=== PATIENT | female | born 1970 | race Caucasian/White ===

== ENCOUNTER → 2018-10-09 | Outpatient (CLI) | payer BC, OTHER ==
--- NOTE | 2018-10-09 13:29 | CT ---
EXAMINATION TYPE: CT sinus wo con DATE OF EXAM: 10/09/2018 COMPARISON: None HISTORY: Chronic sinusitis. Sinus problems on left side. CT DLP: 618.1 mGycm CONTRAST: None The paranasal sinuses are examined in the axial plane at 2 mm thick sections. Reconstructed images i n the coronal plane were obtained. There is dental amalgam scatter artifact There is a retention cyst within the posterior left maxillary sinus. The ethmoid air cells are clear . The sphenoid sinuses are clear. The frontal sinuses are clear. The septum is evaluated. There is septal deviation to the left. The ostiomeatal units are patent. IMPRESSIONS: 1. Small retention cyst within the left maxillary sinus. Paranasal sinuses are otherwise unremarkabl e. 2. Left septal deviation
== END ==
LOC: RADCTMAIN 08:24
PROVIDERS: ATTEND Otolaryngology
DX: J34.1 Cyst and mucocele of nose and nasal sinus (principal); J34.2 Deviated nasal septum
CPT/HCPCS: 70486

== ENCOUNTER → 2020-09-23 | Outpatient (CLI) | payer BC, OTHER | END | disposition home or self-care (01) | LOC: LABWHC1 13:02 | PROVIDERS: ATTEND Family Medicine | DX: Z20.828 Contact with and (suspected) exposure to other viral communicable diseases (principal) | CPT/HCPCS: U0003; C9803 ==

== ENCOUNTER 2021-11-29 11:54 | Emergency (ER) | payer BC ==
[2021-11-29 12:21] VITALS: RESP 18
[2021-11-29] MEDS ORDERED: HYDROmorphone 0.5 MG/0.5 ML SYRINGE IVP STA (13:15)
[2021-11-29] MEDS ORDERED: SODIUM CHLORIDE 0.9% 1,000 ML IV STA (13:15)
--- NOTE | 2021-11-29 13:17 | ED ---
General Adult HPI - General Chief complaint: Abdominal Pain Stated complaint: abnormal bowel habits Time Seen by Provider: 11/29/21 12:28 Source: patient, RN notes reviewed Mode of arrival: ambulatory Limitations: no limitations - History of Present Illness Initial comments: 50-year-old female with a past medical history of thyroid disorder presents to the emergency room for a chief complaint of diarrhea. Patient states yesterday she started to have diarrhea. States she had several episodes. This was then followed by small amounts of bloody stool when she fell acute diarrhea. She admits to a lower abdominal pressure. She denies fevers or chills. Denies lightheadedness. No recent travel. No Patient has no other complaints at this time including shortness of breath, chest pain, nausea or vomiting, headache, or visual changes. - Related Data Home Medications Medication Instructions Recorded Confirmed Cholecalciferol [Vitamin D3] 2,000 unit PO DAILY 09/26/16 09/28/16 Citalopram Hydrobromide [CeleXA] 20 mg PO DAILY 09/26/16 09/28/16 Levothyroxine Sodium [Levoxyl] 100 mcg PO DAILY 09/26/16 09/28/16 Previous Rx's Medication Instructions Recorded Dicyclomine [Bentyl] 20 mg PO TID PRN #20 tablet 11/29/21 Allergies Allergy/AdvReac Type Severity Reaction Status Date / Time acetaminophen [From Vicodin] Allergy Itching Verified 11/29/21 12:19 cephalexin [From Keflex] Allergy Itching Verified 11/29/21 12:19 hydrocodone [From Vicodin] Allergy Itching Verified 11/29/21 12:19 tramadol Allergy Itching Verified 11/29/21 12:19 Review of Systems ROS Statement: Those systems with pertinent positive or pertinent negative responses have been documented in the HPI. ROS Other: All systems not noted in ROS Statement are negative. Past Medical History Past Medical History: Thyroid Disorder Additional Past Medical History / Comment(s): Basal cell skin cancer History of Any Multi-Drug Resistant Organisms: None Reported Past Surgical History: Adenoidectomy, Tubal Ligation Additional Past Surgical History / Comment(s): Cold knife cone with D&C, rhinoplasty, excision of cysts in her groin area, excision of basal cell cancer on her back Past Anesthesia/Blood Transfusion Reactions: No Reported Reaction Past Psychological History: Anxiety Smoking Status: Current every day smoker Past Alcohol Use History: Occasional Past Drug Use History: None Reported - Past Family History Mother Family Medical History: No Reported History General Exam Limitations: no limitations General appearance: alert, in no apparent distress Head exam: Present: atraumatic Eye exam: Present: normal appearance, PERRL, EOMI. Absent: scleral icterus, conjunctival injection ENT exam: Present: normal exam, mucous membranes moist Neck exam: Present: normal inspection, full ROM. Absent: tenderness Respiratory exam: Present: normal lung sounds bilaterally. Absent: respiratory distress, wheezes Cardiovascular Exam: Present: regular rate, normal rhythm, normal heart sounds GI/Abdominal exam: Present: soft, tenderness (mild lower abdominal tenderness), normal bowel sounds. Absent: distended Neurological exam: Present: alert Course Vital Signs 11/29/21 11/29/21 12:19 16:06 Temperature 98.3 F 98.6 F Pulse Rate 89 74 Respiratory 18 18 Rate Blood Pressure 138/92 147/84 O2 Sat by Pulse 100 99 Oximetry Medical Decision Making - Medical Decision Making Vitals are stable. CBC CMP unremarkable. Patient did have a positive occult blood. COVID-[address] abdomen and pelvis did show a nonspecific colitis. I did see a picture of the blood in the toilet and it is a small amount. I think this is likely secondary to a viral inflammation and at this time patient is stable and can follow up outpatient. I did discuss that she needs to follow up closely with her doctor for this and if symptoms are not improving she needs to return to the emergency room. Patient did not qualify for antibody infusion as we're currently having to using [place]'s prioriti zation conditions. - Lab Data Result diagrams: 11/29/21 13:18 11/29/21 13:18 Lab Results 11/29/21 11/29/21 11/29/21 Range/Units 13:18 13:18 13:18 WBC 4.9 (3.8-10.6) k/uL RBC 5.12 (3.80-5.40) m/uL Hgb 16.5 H (11.4-16.0) gm/dL Hct 50.0 H (34.0-46.0) % MCV 97.7 (80.0-100.0) fL MCH 32.2 (25.0-35.0) pg MCHC 32.9 (31.0-37.0) g/dL RDW 12.8 (11.5-15.5) % Plt Count 255 (150-450) k/uL MPV 8.7 Neutrophils % 65 % Lymphocytes % 25 % Monocytes % 8 % Eosinophils % 0 % Basophils % 1 % Neutrophils # 3.2 (1.3-7.7) k/uL Lymphocytes # 1.2 (1.0-4.8) k/uL Monocytes # 0.4 (0-1.0) k/uL Eosinophils # 0.0 (0-0.7) k/uL Basophils # 0.0 (0-0.2) k/uL Sodium 136 L (137-145) mmol/L Potassium 4.4 (3.5-5.1) mmol/L Chloride 98 (98-107) mmol/L Carbon Dioxide 27 (22-30) mmol/L Anion Gap 11 mmol/L BUN 15 (7-17) mg/dL Creatinine 0.77 (0.52-1.04) mg/dL Est GFR (CKD-EPI)AfAm >90 (>60 ml/min/1.73 sqM) Est GFR (CKD-EPI)NonAf 90 (>60 ml/min/1.73 sqM) Glucose 97 (74-99) mg/dL Plasma Lactic Acid Juvencio (0.7-2.0) mmol/L Calcium 10.1 (8.4-10.2) mg/dL Total Bilirubin 0.2 (0.2-1.3) mg/dL AST 45 H (14-36) U/L ALT 22 (4-34) U/L Alkaline Phosphatase 81 (38-126) U/L Total Protein 7.9 (6.3-8.2) g/dL Albumin 4.5 (3.5-5.0) g/dL Amylase 58 (30-110) U/L Lipase 88 (23-300) U/L Stool Occult Blood Positive H (Negative) Coronavirus (PCR) (Not Detectd) 11/29/21 11/29/21 Range/Units 13:18 13:18 WBC (3.8-10.6) k/uL RBC (3.80-5.40) m/uL Hgb (11.4-16.0) gm/dL Hct (34.0-46.0) % MCV (80.0-100.0) fL MCH (25.0-35.0) pg MCHC (31.0-37.0) g/dL RDW (11.5-15.5) % Plt Count (150-450) k/uL MPV Neutrophils % % Lymphocytes % % Monocytes % % Eosinophils % % Basophils % % Neutrophils # (1.3-7.7) k/uL Lymphocytes # (1.0-4.8) k/uL Monocytes # (0-1.0) k/uL Eosinophils # (0-0.7) k/uL Basophils # (0-0.2) k/uL Sodium (137-145) mmol/L Potassium (3.5-5.1) mmol/L Chloride (98-107) mmol/L Carbon Dioxide (22-30) mmol/L Anion Gap mmol/L BUN (7-17) mg/dL Creatinine (0.52-1.04) mg/dL Est GFR (CKD-EPI)AfAm (>60 ml/min/1.73 sqM) Est GFR (CKD-EPI)NonAf (>60 ml/min/1.73 sqM) Glucose (74-99) mg/dL Plasma Lactic Acid Juvencio 0.7 (0.7-2.0) mmol/L Calcium (8.4-10.2) mg/dL Total Bilirubin (0.2-1.3) mg/dL AST (14-36) U/L ALT (4-34) U/L Alkaline Phosphatase (38-126) U/L Total Protein (6.3-8.2) g/dL Albumin (3.5-5.0) g/dL Amylase (30-110) U/L Lipase (23-300) U/L Stool Occult Blood (Negative) Coronavirus (PCR) Detected A (Not Detectd) Disposition Clinical Impression: COVID-19, Hematochezia, Diarrhea Disposition: HOME SELF-CARE Condition: Good Instructions (If sedation given, give patient instructions): Coronavirus Dis ease 2019 (COVID-19), Acute Diarrhea (ED) Additional Instructions: Please follow-up with your doctor in one to 2 days. Discuss possibilities of needing a colonoscopy. Return to the emergency room for any worsening symptoms. Prescriptions: Dicyclomine [Bentyl] 20 mg PO TID PRN #20 tablet PRN Reason: abdominal pain Is patient prescribed a controlled substance at d/c from ED?: No Referrals: Katina Plasencia MD [Primary Care Provider] - 1-2 days Gumaro Guzmán MD [STAFF PHYSICIAN] - 1-2 days Time of Disposition: 15:45
[2021-11-29 13:45] LABS: Basophils % (A) 1 %; Eosinophils % (A) 0 %; HGB 16.5 gm/dL (11.4-16.0); Lymphocytes # (A) 1.2 k/uL (1.0-4.8); Lymphocytes % (A) 25 %; MCH 32.2 pg (25.0-35.0); MCHC 32.9 g/dL (31.0-37.0); MCV 97.7 fL (80.0-100.0); Mean Platelet Volume 8.7; Monocytes # (A) 0.4 k/uL (0-1.0); Monocytes % (A) 8 %; Neutrophils # (A) 3.2 k/uL (1.3-7.7); Neutrophils % (A) 65 %; Platelet Count 255 k/uL (150-450); RBC 5.12 m/uL (3.80-5.40); RDW 12.8 % (11.5-15.5); WBC 4.9 k/uL (3.8-10.6)
[2021-11-29 14:13] LABS: ALT 22 U/L (4-34); AST 45 U/L (14-36); African American GFR (CKD) >90 (>60 ml/min/1.73 sqM); Albumin 4.5 g/dL (3.5-5.0); Alkaline Phosphatase 81 U/L (38-126); Amylase 58 U/L (30-110); Anion Gap 11 mmol/L; Blood Urea Nitrogen 15 mg/dL (7-17); Calcium 10.1 mg/dL (8.4-10.2); Carbon Dioxide 27 mmol/L (22-30); Chloride 98 mmol/L (98-107); Glucose 97 mg/dL (74-99); Lipase 88 U/L (23-300); Non-African American GFR(CKD) 90 (>60 ml/min/1.73 sqM); Potassium 4.4 mmol/L (3.5-5.1); Sodium 136 mmol/L (137-145); Total Bilirubin 0.2 mg/dL (0.2-1.3); Total Protein 7.9 g/dL (6.3-8.2)
--- NOTE | 2021-11-29 14:40 | CT ---
EXAMINATION TYPE: CT abdomen pelvis w con DATE OF EXAM: 11/29/2021 COMPARISON: None HISTORY: Diarrhea and bloody stools. CT DLP: 607.1 mGycm CONTRAST: CT scan of the abdomen and pelvis is performed without Oral Contrast and with IV Contrast, patient in jected with 100 mL of Isovue 300. FINDINGS: LUNG BASES-: No visible nodule. No infiltrate. LIVER/GB: No calcified gallstones. No space occupying hepatic lesion. Biliary tree is of normal ca liber. PANCREAS: No inflammation. No distinct mass. SPLEEN: No splenic enlargement. No lesion seen. ADRENALS: No nodule. No thickening. KIDNEYS/BLADDER: No hydronephrosis. No nephrolithiasis. No distinct renal mass. Urinary bladder g rossly unremarkable. BOWEL: Normal appendix. Normal bowel caliber. No inflammation. There is wall thickening involving t he left hemicolon felt to reflect nonspecific colitis. GENITAL ORGANS: No gross abnormality. LYMPH NODES: No greater than 1cm abdominal or pelvic lymph nodes are appreciated. AORTA: No significant abnormality. OSSEOUS STRUCTURES: No significant abnormality is seen. OTHER: No significant additional abnormality is seen. IMPRESSION: 1. Correlate for nonspecific colitis.
[2021-11-29 16:06] VITALS: BP 147/84; PULSE 74; TEMP 98.6
== END 2021-11-29 16:07 | disposition home or self-care (01) ==
LOC: EC 11:54
DX: U07.1 COVID-19 (principal); K92.1 Melena; R19.7 Diarrhea, unspecified; F41.9 Anxiety disorder, unspecified; F17.200 Nicotine dependence, unspecified, uncomplicated; Z72.89 Other problems related to lifestyle
CPT/HCPCS: 36415; 80053; 82150; 83605; 83690; 85025; 82272; 87635; 74177; 99284; 96374; 96361; J1170; Q9967

== ENCOUNTER → 2022-01-03 | Outpatient (CLI) | payer OTHER ==
--- NOTE | 2022-01-03 12:01 | XR ---
EXAMINATION TYPE: XR shoulder complete LT DATE OF EXAM: 01/03/2022 CLINICAL HISTORY: pain COMPARISON: NONE TECHNIQUE: Three views of the left shoulder are obtained. FINDINGS: There is no acute fracture/dislocation evident. The acromioclavicular and glenohumeral jm int spaces appear within normal limits. The visualized ribs are intact and unremarkable. IMPRESSION: 1. There is no acute fracture or dislocation. ICD 10 NO FRACTURE, INITIAL EVALUATION
== END | disposition home or self-care (01) ==
LOC: RADXRMAIN 11:39
PROVIDERS: ATTEND Emergency Medicine
DX: M25.512 Pain in left shoulder (principal)

== ENCOUNTER 2025-05-20 16:45 | Emergency (ER) | payer BC, OTHER ==
--- NOTE | 2025-05-20 18:07 | ED ---
General Adult HPI - General Chief complaint: Extremity Injury, Lower Stated complaint: left leg pain - injury Time Seen by Provider: 05/20/25 17:30 Source: patient, RN notes reviewed, old records reviewed Mode of arrival: ambulatory Limitations: no limitations - History of Present Illness Initial comments: 54-year-old female presents emergency department for work. A large piece of machinery fell on her thigh. Did not pain her. Suffered a abrasion to her anterior left thigh with some bruising. Presents for evaluation afterwards. Has no other acute complaints. Is ambulatory. No sensory deficits. Bleeding is controlled. He is not up-to-date on tetanus but does not want a booster. Presents for further evaluation.No other injuries. She is not on blood thinners. She did not hit her head. Did not lose consciousness. - Related Data Home Medications Medication Instructions Recorded Confirmed Cholecalciferol [Vitamin D3] 2,000 unit PO DAILY 09/26/16 09/28/16 Citalopram Hydrobromide [CeleXA] 20 mg PO DAILY 09/26/16 09/28/16 Levothyroxine Sodium [Levoxyl] 100 mcg PO DAILY 09/26/16 09/28/16 Previous Rx's Medication Instructions Recorded Dicyclomine [Bentyl] 20 mg PO TID PRN #20 tablet 11/29/21 Allergies Allergy/AdvReac Type Severity Reaction Status Date / Time acetaminophen [From Vicodin] Allergy Itching Verified 05/20/25 16:54 cephalexin [From Keflex] Allergy Itching Verified 05/20/25 16:54 hydrocodone [From Vicodin] Allergy Itching Verified 05/20/25 16:54 tramadol Allergy Itching Verified 05/20/25 16:54 Review of Systems ROS Statement: Those systems with pertinent positive or pertinent negative responses have been documented in the HPI. Review of Systems: CONST: Denies fever EYES: Denies blurry vision ENT: Denies nasal congestion C/V: Denies Chest pain RESP: Denies shortness of breath GI: Denies abdominal pain : Denies dysuria SKIN: Endorses left thigh abrasion MSK: Denies joint pain. NEURO: Denies headache ROS Other: All systems not noted in ROS Statement are negative. Past Medical History Past Medical History: Thyroid Disorder Additional Past Medical History / Comment(s): Basal cell skin cancer History of Any Multi-Drug Resistant Organisms: None Reported Past Surgical History: Adenoidectomy, Tubal Ligation Additional Past Surgical History / Comment(s): Cold knife cone with D&C, rhinoplasty, excision of cysts in her groin area, excision of basal cell cancer on her back Past Anesthesia/Blood Transfusion Reactions: No Reported Reaction Past Psychological History: Anxiety Smoking Status: Current every day smoker Past Alcohol Use History: Occasional Past Drug Use History: None Reported - Past Family History Mother Family Medical History: No Reported History General Exam - General Exam Comments Initial Comments: General: Appears in no acute distress. HEAD: Normal with no signs of head trauma. EYES: EOMI. ENT: Hearing grossly intact. RESPIRATORY: No respiratory distress. C/V: Regular rate and rhythm. ABD: Abdomen is nondistended. EXT: No obvious deformity. Able to ambulate without issue. SKIN: Multiple superficial abrasions to the anterior left thigh with surrounding contusion. No obvious deformity. NEURO: Alert and oriented. Limitations: no limitations Course Vital Signs 05/20/25 05/20/25 16:52 18:20 Temperature 98.7 F 97.9 F Pulse Rate 86 62 Respiratory 16 18 Rate Blood Pressure 153/89 125/75 O2 Sat by Pulse 100 98 Oximetry Medical Decision Making - Medical Decision Making Was pt. sent in by a medical professional or institution (, PA, KEY ACCOUNT REPRESENTATIVE, urgent care, hospital, or fdc...) When possible be specific @ -No Did you speak to anyone other than the patient for history (EMS, parent, family, police, friend...)? What history was obtained from this source @ -No Did you review nursing and triage notes (agree or disagree)? Why? @ -I reviewed and agree with nursing and triage notes Were old charts reviewed (outside hosp., previous admission, EMS record, old EKG, old radiological studies, urgent care reports/EKG's, fdc records)? Report findings @ -No old charts were reviewed Differential Diagnosis (chest pain, altered mental status, abdominal pain women, abdominal pain men, vaginal bleeding, weakness, fever, dyspnea, syncope, headache, dizziness, GI bleed, back pain, seizure, CVA, palpatations, mental health, musculoskeletal)? @ -Abrasion, muscle pain, contusion. This list is not all-inclusive. EKG interpreted by me (3pts min.). @ -None X-rays interpreted by me (1pt min.). @ -None done CT interpreted by me (1pt min.). @ -None done U/S interpreted by me (1pt. min.). @ -None done What testing was considered but not performed or refused? (CT, X-rays, U/S, labs)? Why? @ -Considered x-ray of the left thigh however after discussion with patient, she is ambulatory with no significant pain at all and superficial pain. Decided to defer at this time. What meds were considered but not given or refused? Why? @ -Offered analgesic medications which were declined. Did you discuss the management of the patient with other professionals (professionals i.e. , PA, KEY ACCOUNT REPRESENTATIVE, lab, RT, psych nurse, social welfare clerk, environmental lawyer, teacher, correction officer penitentiary, assistant case manager)? Give summary @ -No Was smoking cessation discussed for >3mins.? @ -No Was critical care preformed (if so, how long)? @ -No Were there social determinants of health that impacted care today? How? (Homelessness, low income, unemployed, alcoholism, drug addiction, transportation, low edu. Level, literacy, decrease access to med. care, senior care, rehab)? @ -No Was there de-escalation of care discussed even if they declined (Discuss DNR or withdrawal of care, Hospice)? DNR status @ -No What co-morbidities impacted this encounter? (DM, HTN, Smoking, COPD, CAD, Cancer, CVA, ARF, Chemo, Hep., AIDS, mental health diagnosis, sleep apnea, morbid obesity)? @ -None Was patient admitted / discharged? Hospital course, mention meds given and route, prescriptions, significant lab abnormalities, going to OR and other pertinent info. @ -Based on patient's presentation physical exam, presents emergency department complaining of left thigh abrasion and contusion. No indication for imaging. Vitals within acceptable limits. Exam otherwise unremarkable. She declines tetanus booster as well as declines pain meds. She will be discharged home with a work note. She was in agreement this plan. Discussed superficial wound care I instructed the patient to follow up with their PCP in the next 1-3 days. I explained that the patient should return to the emergency department if they experience any worsening symptoms. Strict return precautions were discussed with the patient. The patient expressed understanding of these instructions. I answered all questions that the patient had. The patient was discharged home in good condition with their prescriptions and follow up information. Undiagnosed new problem with uncertain prognosis? @ -No Drug Therapy requiring intensive monitoring for toxicity (Heparin, Nitro, Insulin, Cardizem)? @ -No Were any procedures done? @ -No Diagnosis/symptom? @ -Thigh abrasion, thigh contusion Acute, or Chronic, or Acute on Chronic? @ -Acute Uncomplicated (without systemic symptoms) or Complicated (systemic symptoms)? @ -Uncomplicated Side effects of treatment? @ -No Exacerbation, Progression, or Severe Exacerbation? @ -No Poses a threat to life or bodily function? How? (Chest pain, [place], [place], pneumonia, PE, COPD, DKA, ARF, appy, cholecystitis, CVA, Diverticulitis, Homicidal, Suicidal, threat to staff... and all critical care pts) @ -Unlikely at this time Disposition Clinical Impression: Thigh abrasion, Thigh contusion Disposition: HOME SELF-CARE Instructions (If sedation given, give patient instructions): Contusion in Adults (ED), Abrasion (ED) Is patient prescribed a controlled substance at d/c from ED?: No Referrals: Katina Plasencia MD [Primary Care Provider] - 1-2 days Time of Disposition: 18:07
[2025-05-20 18:21] VITALS: BP 125/75; PULSE 62; RESP 18; TEMP 97.9
== END 2025-05-20 18:26 | disposition home or self-care (01) ==
LOC: EC 16:45
DX: S70.12XA Contusion of left thigh, initial encounter (principal); F17.200 Nicotine dependence, unspecified, uncomplicated; Z88.1 Allergy status to other antibiotic agents; Z88.5 Allergy status to narcotic agent; Z88.8 Allergy status to other drugs, medicaments and biological substances; W20.8XXA Other cause of strike by thrown, projected or falling object, initial encounter; Y99.0 Civilian activity done for income or pay
CPT/HCPCS: 99283